=== PATIENT | female | born 1990 | race Caucasian/White ===

== ENCOUNTER 2021-07-22 12:21 | Outpatient (REF) | payer OTHER, SELFPAY ==
--- NOTE | 2021-07-22 11:00 | PAPFT_PTH ---
PATIENT: Mae Broderick LOC: [facility] U#:[id number] AGE/SX: 30/F ROOM: RE07/22/[address]: Verna Clark : 1990 BED: DIS: 07/22/2021 SPEC #: [id number] RECD: 07/22/21 17:03 STATUS: TRISTEN KING #: [id number] SAVITA: 07/22/21 11:[address]: Verna Clark DEPT: [facility] Cytology RECD BY: Rashmi Lanza Tissues: 1 - CX/ENDOCX FOR PAP SMEARS Procedures: PAP THIN PREP/UVM Screening HPV DNA PROBE Comments: [id number]
== END 2021-07-22 12:22 | disposition home or self-care (01) ==
LOC: LBN 12:21
PROVIDERS: Visit Provider Obstetrics & Gynecology Gynecology
DX: Z12.4 Encounter for screening for malignant neoplasm of cervix (principal); Z11.51 Encounter for screening for human papillomavirus (HPV); R87.610 Atypical squamous cells of undetermined significance on cytologic smear of cervix (ASC-US)
CPT/HCPCS: 88142; 87624

== ENCOUNTER 2021-11-15 02:44 | Outpatient (CLI) | payer OTHER, SELFPAY ==
[2021-11-15 11:42] LABS: Kit/Specimen SENT
[2021-11-15 11:57] LABS: Abs Immature Grans 0.01 10^3/uL (0.0-0.06); Absolute Basophil Count 0.03 10^3/uL (0.0-0.2); Absolute Eosinophil Count 0.16 10^3/uL (0.0-0.7); Absolute Lymphocyte Count 1.02 10^3/uL (1.2-3.4); Absolute Monocyte Count 0.33 10^3/uL (0.1-0.8); Absolute Neutrophil Count 3.99 10^3/uL (1.2-6.7); Basophils % 0.5; Eosinophils % 2.9; HCT 35.5 % (36.0-46.0); HGB 13.3 g/dL (11.2-15.7); Immature Grans % 0.2; Lymphocytes % 18.4; MCH 33.3 pg (27.0-33.0); MCHC 37.5 % (32.0-36.0); MCV 89 fL (80-95); MPV 9.5 fL (8.0-11.0); Platelet Count 213 10^3/uL (130-400); RBC 3.99 10^6/uL (3.93-5.22); RDW-SD 38.8 fL; WBC 5.54 10^3/uL (4.4-10.8)
[2021-11-15 12:55] LABS: Lab Add On Test DONE
[2021-11-15 13:23] LABS: *AMPHETAMINES SCREEN URINE Negative (Negative); *BARBITURATES SCREEN URINE Negative (Negative); *BENZODIAZEPINES SCREEN URINE Negative (Negative); Cannabinoids THC Negative (Negative); Cocaine Screen,Urine Negative (Negative); OPIATES URINE SCREEN Negative (Negative); Tricyclic Antidepressants Negative (Negative)
[2021-11-15 13:53] LABS: TSH (W/Ref FT4) 0.86 uIU/mL (0.36-3.74)
[2021-11-16 10:08] LABS: HIV-1/2 Ag & Ab Screen Negative (Negative)
[2021-11-16 10:28] LABS: Varicella IgG Antibody Positive (See Note)
[2021-11-16 10:33] LABS: Hepatitis B Surface Ag Negative (Negative); Rubella IgG Ab (UVM) Positive (See Note)
[2021-11-16 11:06] LABS: Hepatitis C Ab w Rflx HCV PCR Negative (Negative)
[2021-11-16 15:13] LABS: Chlamydia Result Negative (Negative); GC Result Negative (Negative)
[2021-11-17 22:34] LABS: Syphilis IgG w/Reflex Nonreactive (Nonreactive)
[2021-11-18 15:11] LABS: Buprenorphine Negative ng/mL (Cutoff: 5.0); Norbuprenorphine Negative ng/mL (Cutoff: 2.5)
== END 2021-11-15 02:45 | disposition home or self-care (01) ==
LOC: LBO 02:44
PROVIDERS: Visit Provider Advanced Practice Midwife
DX: Z34.91 Encounter for supervision of normal pregnancy, unspecified, first trimester (principal); Z3A.12 12 weeks gestation of pregnancy
CPT/HCPCS: 80307; 86787; 86803; 86850; 86900; 86901; 87340; 87389; 87491; 87591; 84443; 85025; 86762; 86780; 87086; 87480; 87510; 87660

== ENCOUNTER 2022-03-10 00:56 | Outpatient (CLI) | payer OTHER, SELFPAY ==
--- OUTSIDE RECORDS SUMMARY | 2022-03-10 01:32 | XMS_ITS | Encounter Summary ---
:1990 Author Organization [facility] Address [address] [place] [address] Care Team Providers Name Role Phone Unknown, Provider Primary Care Provider Encounter Details Date Type Department Care Team Description 07/25/2021 Lab Requisition [facility] Verna Perez, En counter for other Pathology & MD general examination Laboratory Medicine [address] [facility] [address] [place] [id number] Social History Tobacco Use Types Packs/Day Years Used Date Never Assessed Sex Assigned at Date Recorded Not on file documented as of this encounter Plan of Treatment Not on filedocumented as of this encounter Procedures Procedure Name Priority Date/Time Associated Comments Diagnosis PAP TEST Today 07/22/2021 11:00 Encounter for other Resu lts for this EST general examination procedur e are in the results section. HUMAN PAPILLOMAVIRUS Today 07/22/2021 11:00 Encounter for ot her Results for this (HPV) DETECTION-HIGH EST general examination procedure are in RISK TYPES the results section. documented in this encounter Results HUMAN PAPILLOMAVIRUS (HPV) DETECTION-HIGH RISK TYPES (07/22/2021 11:00 EST) Human Papillomavirus NegativeComment: No Negative [facility] (HPV) Detection-High E6 or E7 mRNA is CENTER LABORATOR Y Types detected from HPV SERVICES types 16,18,31,33,35,39,45 ,51,52,56,58,59,66, and 68 by portfolio analyst mediated amplification. Specimen Pap Test - Cervix and/or Endocervix Performing Organization Address City/State/ZIP Code Phon e Number [facility] [address] [place] [address] SERVICES PAP TEST (07/22/2021 11:00 EST) Specimens A. Cervix and/or [facility] Endocervix , CENTER ThinPrep Imaging LABORATORY System with Manual SERVICES Evaluation Specimen Adequacy Satisfactory for [facility] Evaluation - [place] transformation zone LABORATORY component present SERVICES General Epithelial Cell [facility] Categorization Abnormality CENTER LABORATORY SERVICES Descriptive Squamous Cell [facility] Diagnosis Abnormality - CENTER Atypical squamous LABORATORY cells, undetermined SERVICES significance (ASC-US). Educational Comments [facility] recommends following A SCCP's 2012 Updated Consensus Guidelines for the Management of Abnormal Cervical Cancer Screening Tests and Cancer Precursors (JLGTD, 2013; 17(5):S1-S27). Consensus guidelines are available online at www.asccp.org. [facility] Attestation By the signature below, the attending physician certifies that they have personally conducted a gross and/or microscopic [facility] Electronically examination of the described specimens and rendered or confirmed the above diagnosis. CENTER signed by NINO Tsai M D on SERVICES 08/05/2021 at 07 16 Clinical History See below [facility] SERVICES HPV The result for the Human Pap illomavirus (HPV) Detection-High Risk Types is Negative. No E6 or E7 mRNA is detected from HPV types 16,18,31,33,35,39,45,51,52,56,58,59,66, and 68 by portfolio analyst mediated [facility] amplification.Testing was pe rformed on specimen [id number] and was resulted on 08/05/2021 0713 EST by PADMINI, LAB INSTRUMENT RESULTS IN [facility] Performing Lab [facility] HOSPITAL LAB [facility] Scanned Images [facility] SERVICES Specimen Pap Test - Cervix and/or Endocervix Performing Organization Address City/State/ZIP Code Phon e Number [facility] [address] [place] [address] SERVICES documented in this encounter Visit Diagnoses Diagnosis Encounter for other general examination documented in this encounter Care Teams Maths Tutor Relationship Specialty Start Date End Date Unknown, Provider, PCP - General 06/18/21 documented as of this encounter
--- OUTSIDE RECORDS SUMMARY | 2022-03-10 01:32 | XMS_ITS | Encounter Summary ---
:[address] [facility] Address [address] [place] [address] Care Team Providers Name Role Phone Unknown, Provider Primary Care Provider Encounter Details Date Type Department Care Team Description 11/15/2021 Lab Requisition [facility] Outr Resulting Lab, Pathology & Laboratory Provider [facility] [address] [place] [address] Social History Tobacco Use Types Packs/Day Years Used Date Never Assessed Sex Assigned at Date Recorded Not on file documented as of this encounter Plan of Treatment Not on filedocumented as of this encounter Procedures Procedure Name Priority Date/Time Associated Comments Diagnosis HIV 1/2 ANTIGEN AND Routine 11/15/2021 11:34 Resu lts for this ANTIBODY, 4TH EDT procedure are in GENERATION the results section. documented in this encounter Results HIV 1/2 ANTIGEN AND ANTIBODY, 4TH GENERATION (11/15/2021 11:34 EDT) HIV 1 and 2 NegativeComment: If Negative [facility] Antibody/p24 acute HIV-1 LABORATORY Antigen, 4th infection is SERVICES Generation suspected in a high risk patient, submit plasma specimen for HIV-1 RNA quantitation test. Specimen Blood - Venous blood (substance) Narrative [facility] - 11/16/2021 10:03 EDT Fourth Generation assay performed on the Siemens Centaur XPT. Performing Organization Address City/State/ZIP Code Phon e Number [facility] [address] [place] [address] SERVICES documented in this encounter Visit Diagnoses Not on filedocumented in this encounter Care Teams Political Consultant Relationship Specialty Start Date End Date Unknown, Provider, PCP - General 06/18/21 documented as of this encounter
--- OUTSIDE RECORDS SUMMARY | 2022-03-10 01:32 | XMS_ITS | Encounter Summary ---
:1990 Author Organization [facility] Address [address] [place] [address] Care Team Providers Name Role Phone Unknown, Provider Primary Care Provider Encounter Details Date Type Department Care Team Description 11/15/2021 Lab Requisition [facility] Outr Resulting Lab, Pathology & Laboratory Provider [facility] [address] [place] [address] Social History Tobacco Use Types Packs/Day Years Used Date Never Assessed Sex Assigned at Date Recorded Not on file documented as of this encounter Plan of Treatment Not on filedocumented as of this encounter Procedures Procedure Name Priority Date/Time Associated Comments Diagnosis CHLAMYDIA/N. Routine 11/15/2021 10:50 Results for this GONORRHOEAE AMPLIFIED EDT proced ure are in RNA the results section. documented in this encounter Results CHLAMYDIA/N. GONORRHOEAE AMPLIFIED RNA (11/15/2021 10:50 EDT) Pathologist Sig nature Gonococcus Result Negative Negative [facility] Chlamydia Result Negative Negative [facility] Specimen Swab - Entire endocervix (body structure ) Performing Organization Address City/State/ZIP Code Phon e Number [facility] [address] [place] [address] SERVICES documented in this encounter Visit Diagnoses Not on filedocumented in this encounter Care Teams Relay Dispatcher Relationship Specialty Start Date End Date Unknown, Provider, PCP - General 06/18/21 documented as of this encounter
--- OUTSIDE RECORDS SUMMARY | 2022-03-10 01:32 | XMS_ITS | Encounter Summary ---
:1990 [place] [address] Care Team Providers Name Role Phone Unavailable Primary Care Provider Unavailable Reason for Referral Consultation (Routine) - Closed Specialty Diagnoses / Procedures Referred By Contact Refer red To Contact Obstetrics and Diagnoses Family history of carrier of genetic disease family hx Trisomy 6 Danya Crockett, [facility] [employer] Operator 5l Gynecology CNM [address] [place] [id number] Referral ID Status Reason Start Date Expiration Date Visits V isits Requested Authorized [id number] Closed Consult, Test 11/25/2021 11/25/2022 6 6 & Treat PCP Updated and/or Approved Encounter Details Date Type Department Care Team Description 11/25/2021 Transcribe Orders eDH Incoming Family Keira his tory of Referrals KELBY Hagan trisomy [address] [place] [address] [place] [address] Social History Tobacco Use Types Packs/Day Years Used Date Never Assessed Sex Assigned at Date Recorded Not on file documented as of this encounter Plan of Treatment Scheduled Referrals Name Type Priority Associated Diagnoses Order S chedule Referral to Outpatient Referral Routine Family history of Ord ered: Maternal trisomy 13 11/25/2021 Medicine documented as of this encounter Visit Diagnoses Diagnosis Family history of trisomy 13 documented in this encounter
--- OUTSIDE RECORDS SUMMARY | 2022-03-10 01:32 | XMS_ITS | Clinical Summary ---
:1990 Author Organization [facility] Address [address] [place] [address] Care Team Providers Name Role Phone Unknown, Provider Primary Care Provider Social History Tobacco Use Types Packs/Day Years Used Date Never Assessed Sex Assigned at Date Recorded Not on file Plan of Treatment Health Maintenance Due Date Last Done Comments COVID-19 Vaccine (1) 10/23/1995 Hepatitis C Screen Completed 11/15/2021 Insurance Payer Benefit Plan / Subscriber ID Effective Phone Address T ype Group Dates [facility] [id number] 2021-Pre [phone] [facility] sent [phone] [place] [address] DevondominiqueMae Li Personal/Family Self [address] (Home) [place] [address] Mae Broderick Personal/Family Self [address] ([place]) [place] [address] Mae Broderick Personal/Family Self [address] (Home) [place] [address] Mae Broderick Personal/Family Self [address] [address] Mae Broderick Personal/Family Self [address] ([place] [address] Mae Broderick Personal/Family Self [address] (Home) [place] [address] Mae Broderick Personal/Family Self 1990 [address] (Home) [place] [address] Care Teams Glass Breaker Relationship Specialty Start Date End Date Unknown, Provider, PCP - General 06/18/21
--- OUTSIDE RECORDS SUMMARY | 2022-03-10 01:32 | XMS_ITS | Encounter Summary ---
:[address] [facility] Address [address] [place] [address] Care Team Providers Name Role Phone Unknown, Provider Primary Care Provider Encounter Details Date Type Department Care Team Description 11/15/2021 Lab Requisition [facility] Outr Resulting Lab, Pathology & Laboratory Provider [facility] [address] [place] [address] Social History Tobacco Use Types Packs/Day Years Used Date Never Assessed Sex Assigned at Date Recorded Not on file documented as of this encounter Plan of Treatment Not on filedocumented as of this encounter Procedures Procedure Name Priority Date/Time Associated Diagnosis Comme nts HEPATITIS C AB W Routine 11/15/2021 11:34 Results for this REFLEX TO HCV RNA EDT procedure are in BY PCR the results section. HEPATITIS B SURFACE Routine 11/15/2021 11:34 Resu lts for this ANTIGEN EDT procedure are i n the results section. documented in this encounter Results HEPATITIS B SURFACE ANTIGEN (11/15/2021 11:34 EDT) Pathologist Sig nature Hep B Surface Ag Negative Negative [facility] Specimen Blood - Venous blood (substance) Performing Organization Address [facility] Code Phon e Number [facility] [address] [place] [address] SERVICES HEPATITIS C AB W REFLEX TO HCV RNA BY PCR (11/15/2021 11:34 EDT) Pathologist Sig nature Hep C Antibody Negative Negative [facility] Specimen Blood - Venous blood (substance) Performing Organization Address [facility] Phon e Number [facility] [address] [place] [address] SERVICES documented in this encounter Visit Diagnoses Not on filedocumented in this encounter Care Teams Marketing Automation Analyst Relationship Specialty Start Date End Date Unknown, Provider, PCP - General 06/18/21 documented as of this encounter
[2022-03-10 09:50] LABS: Abs Immature Grans 0.04 10^3/uL (0.0-0.06); Absolute Basophil Count 0.04 10^3/uL (0.0-0.2); Absolute Eosinophil Count 0.21 10^3/uL (0.0-0.7); Absolute Lymphocyte Count 1.03 10^3/uL (1.2-3.4); Absolute Monocyte Count 0.43 10^3/uL (0.1-0.8); Absolute Neutrophil Count 7.47 10^3/uL (1.2-6.7); Basophils % 0.4; Eosinophils % 2.3; HCT 37.8 % (36.0-46.0); HGB 13.2 g/dL (11.2-15.7); Immature Grans % 0.4; Lymphocytes % 11.2; MCH 33.1 pg (27.0-33.0); MCHC 34.9 % (32.0-36.0); MCV 95 fL (80-95); MPV 9.8 fL (8.0-11.0); Monocytes % 4.7; Platelet Count 183 10^3/uL (130-400); RBC 3.99 10^6/uL (3.93-5.22); RDW 12.8 % (11.7-14.6); RDW-SD 44.4 fL; WBC 9.22 10^3/uL (4.4-10.8)
[2022-03-10 10:19] LABS: Glucose,1 Hr (Glucola) 107 mg/dL (80-140)
== END 2022-03-10 00:57 | disposition home or self-care (01) ==
LOC: LBO 00:57
PROVIDERS: Visit Provider Obstetrics & Gynecology
DX: Z34.93 Encounter for supervision of normal pregnancy, unspecified, third trimester (principal); Z3A.28 28 weeks gestation of pregnancy
CPT/HCPCS: 36415; 82950; 85025